=== PATIENT | female | born 1975 | race African-American/Black ===

== ENCOUNTER 2017-09-30 12:16 | Emergency (ER) | payer BC ==
[2017-09-30] MEDS: ONDANSETRON PF 4 MG/2 ML VIAL. IV (12:45)
[2017-09-30] MEDS: KETOROLAC 30 MG/ML INJ. IV (12:45)
[2017-09-30] MEDS: IV NORMAL SALINE 500ML BAG 500 ML IV (12:45)
[2017-09-30 12:54] LABS: URINE HCG POC HCG NEGATIVE (Negative)
[2017-09-30 14:20] LABS: AGAP ISTAT 14 mmol/L (6-14); BUN ISTAT 9 mg/dL (8-26); CHLORIDE ISTAT 102 mmol/L (98-110); CREATININE ISTAT 0.6 mg/dL (0.5-1.4); GLUCOSE ISTAT 92 mg/dL (70-99); HEMATOCRIT ISTAT 39 % (36-40); HEMOGLOBIN ISTAT 13.3 g/dL (12-15); ION CA ISTAT 1.13 mmol/L (1.13-1.32); POTASSIUM ISTAT 3.3 mmol/L (3.5-5.0); SODIUM ISTAT 138 mmol/L (135-145); TOT CO2 ISTAT 27 mmol/L (23-32)
[2017-09-30 20:13] LABS: AGAP ISTAT 9 mmol/L (6-14); BUN ISTAT 17 mg/dL (8-26); CHLORIDE ISTAT 101 mmol/L (98-110); GLUCOSE ISTAT 75 mg/dL (70-99); HEMATOCRIT ISTAT 41 % (36-40); HEMOGLOBIN ISTAT 13.9 g/dL (12-15); ION CA ISTAT 1.24 mmol/L (1.13-1.32); POTASSIUM ISTAT 3.3 mmol/L (3.5-5.0); SODIUM ISTAT 141 mmol/L (135-145); TOT CO2 ISTAT 35 mmol/L (23-32)
== END 2017-09-30 14:44 | disposition home or self-care (01) ==
LOC: ER 12:16
DX: R51 Headache (principal); I10 Essential (primary) hypertension
CPT/HCPCS: 36415; 70450; 80047; 81025; 85014; 85018; 96361; 96374; 96375; 99284-25; J1885; J2405; J7040

== ENCOUNTER → 2017-12-21 | Outpatient (CLI) | payer BC | END | disposition home or self-care (01) | LOC: MAMMO 09:54 | DX: N63.11 Unspecified lump in the right breast, upper outer quadrant (principal) | CPT/HCPCS: 76641 ==

== ENCOUNTER 2019-08-13 19:26 | Emergency (ER) | payer BC ==
[~2019-08-13] VITALS: Ht 167.6 cm; Wt 63.6 kg
--- NOTE | 2019-08-13 19:49 | PHYS DOC ---
Past Medical History Past Medical History: Hypertension Past Surgical History: No Surgical History Smoking Status: Never Smoker Alcohol Use: None Drug Use: None Adult General Chief Complaint Chief Complaint: BACK PAIN - NO INJURY [facility] HPI Patient is a 43 year old female who presents with upper back pain for the last 2 days. Patient states no injury, she just noticed the discomfort started to fee l a bit worse each day. States it seems to go across her upper back. Denies any shortness of breath. Denies any discomfort on deep inspiration. Denies nausea, vomiting. States she does have history of hypertension. Review of Systems Review of Systems Constitutional: Denies fever or chills [] Eyes: Denies change in visual acuity, redness, or eye pain [] HENT: Denies nasal congestion or sore throat [] Respiratory: Denies cough or shortness of breath [] Cardiovascular: No additional information not addressed in HPI [] GI: Denies abdominal pain, nausea, vomiting, bloody stools or diarrhea [] : Denies dysuria or hematuria [] Musculoskeletal: Reports upper back pain[] Integument: Denies rash or skin lesions [] Neurologic: Denies headache, focal weakness or sensory changes [] Endocrine: Denies polyuria or polydipsia [] All other systems were reviewed and found to be within normal limits, except as documented in this note. Allergies Allergies Allergies Coded Allergies Type Severity Reaction Last Updated Verified No Known Drug Allergies 09/30/17 No Physical Exam Physical Exam Constitutional: Well developed, well nourished, no acute distress, non-toxic appearance. [] Eyes: PERRLA, EOMI, conjunctiva normal, no discharge. [] Neck: Normal range of motion, no tenderness, supple, no stridor. [] Cardiovascular:Heart rate regular rhythm, no murmur [] Lungs & Thorax: Bilateral breath sounds clear to auscultation [] Abdomen: Bowel sounds normal, soft, no tenderness, no masses, no pulsatile mas ses. [] Skin: Warm, dry, no erythema, no rash. [] Back: No tenderness, no CVA tenderness. No spinous process tenderness. No tenderness noted to palpation to ribs. Patient reports he continues to have discomfort to her upper back, denies any increase in discomfort on palpation of back muscle or bones[] Extremities: No tenderness, no cyanosis, no clubbing, ROM intact, no edema. [] Neurologic: Alert and oriented X 3, normal motor function, normal sensory function, no focal deficits noted. [] Psychologic: Affect normal, judgement normal, mood normal. [] Current Patient Data Vital Signs Vital Signs Date Time Temp Pulse Resp B/P (MAP) Pulse Ox O2 Delivery O2 Flow Rate FiO2 08/13/19 19:50 97.8 77 18 138/82 (100) 100 Room Air 97.8 Lab Values Laboratory Tests Test 08/13/19 20:15 White Blood Count 4.2 x10^3/uL (4.0-11.0) Red Blood Count 4.05 x10^6/uL (3.50-5.40) Hemoglobin 12.9 g/dL (12.0-15.5) Hematocrit 38.0 % (36.0-47.0) Mean Corpuscular Volume 94 fL (79-100) Mean Corpuscular Hemoglobin 32 pg (25-35) Mean Corpuscular Hemoglobin Concent 34 g/dL (31-37) Red Cell Distribution Width 12.4 % (11.5-14.5) Platelet Count 164 x10^3/uL (140-400) Neutrophils (%) (Auto) 41 % (31-73) Lymphocytes (%) (Auto) 49 % (24-48) H Monocytes (%) (Auto) 10 % (0-9) H Eosinophils (%) (Auto) 0 % (0-3) Basophils (%) (Auto) 1 % (0-3) Neutrophils # (Auto) 1.7 x10^3/uL (1.8-7.7) L Lymphocytes # (Auto) 2.0 x10^3/uL (1.0-4.8) Monocytes # (Auto) 0.4 x10^3/uL (0.0-1.1) Eosinophils # (Auto) 0.0 x10^3/uL (0.0-0.7) Basophils # (Auto) 0.0 x10^3/uL (0.0-0.2) Sodium Level 141 mmol/L (136-145) Potassium Level 3.8 mmol/L (3.5-5.1) Chloride Level 104 mmol/L (98-107) Carbon Dioxide Level 27 mmol/L (21-32) Anion Gap 10 (6-14) Blood Urea Nitrogen 8 mg/dL (7-20) Creatinine 0.7 mg/dL (0.6-1.0) Estimated GFR (Cockcroft-Gault) 109.5 BUN/Creatinine Ratio 11 (6-20) Glucose Level 95 mg/dL (70-99) Calcium Level 8.5 mg/dL (8.5-10.1) Total Bilirubin 0.4 mg/dL (0.2-1.0) Aspartate Amino Transferase (AST) 18 U/L (15-37) Alanine Aminotransferase (ALT) 26 U/L (14-59) Alkaline Phosphatase 67 U/L (46-116) Troponin I Quantitative < 0.017 ng/mL (0.000-0.055) Total Protein 7.1 g/dL (6.4-8.2) Albumin 4.0 g/dL (3.4-5.0) Albumin/Globulin Ratio 1.3 (1.0-1.7) Laboratory Tests 08/13/19 20:15 Laboratory Tests 08/13/19 20:15 EKG EKG [] Radiology/Procedures Radiology/Procedures []Comparisons: 08/13/2019 FINDINGS: The cardiomediastinal silhouette and pulmonary vessels are within normal limits. The lung and pleural spaces are clear. IMPRESSION: No acute cardiopulmonary process. Electronically signed by: Eleanor Bartlett MD (08/13/2019 8:27 PM) [id number] Course & Med Decision Making Course & Med Decision Making Pertinent Labs and Imaging studies reviewed. (See chart for details) []Discussed reviewed results with patient, without acute findings. Recommend Tylenol and ibuprofen, offered short course of muscle relaxants which patient declines. Patient in agreement with this plan. Without Further questions or concerns Dragon Disclaimer Dragon Disclaimer This electronic medical record was generated, in whole or in part, using a voice recognition dictation system. Departure Departure Impression: Primary Impression: Back pain Disposition: 01 HOME, SELF-CARE Condition: STABLE Referrals: UNKNOWN PCP NAME (PCP) Patient Instructions: Back Pain, Adult, [id number] Additional Instructions: As we discussed, he can continue to take Tylenol or ibuprofen for discomfort. He may take Tylenol 500 mg to 1000 mg every 6 hours. Try to get some rest, this may help for your discomfort as well. If you continue to have the discomfort, follow-up with your primary care provider in the next week. Problem Qualifiers Primary Impression: Back pain Back pain location: thoracic back pain Chronicity: acute Back pain laterality: midline Qualified Codes: M54.6 - Pain in thoracic spine SLOANE PERDOMO APRN Aug 13, 2019 19:49
[2019-08-13 19:50] VITALS: BP 138/82
[2019-08-13 20:20] LABS: BASO % 1 % (0-3); EOS % 0 % (0-3); HEMOGLOBIN 12.9 g/dL (12.0-15.5); LYMPH % 49 % (24-48); MEAN CORPUSCULAR HEMOGLOBIN 32 pg (25-35); MEAN CORPUSCULAR HGB CONC 34 g/dL (31-37); MEAN CORPUSCULAR VOLUME 94 fL (79-100); MONO # 0.4 x10^3/uL (0.0-1.1); MONO % 10 % (0-9); NEUT # 1.7 x10^3/uL (1.8-7.7); NEUT % 41 % (31-73); PLATELET COUNT 164 x10^3/uL (140-400); RED BLOOD COUNT 4.05 x10^6/uL (3.50-5.40); RED CELL DISTRIBUTION WIDTH 12.4 % (11.5-14.5); WHITE BLOOD COUNT 4.2 x10^3/uL (4.0-11.0)
--- NOTE | 2019-08-13 20:30 | RAD ---
Exam: Chest 2 views INDICATION: Chest/back pain without injury TECHNIQUE: Frontal and lateral views the chest Comparisons: 08/13/2019 FINDINGS: The cardiomediastinal silhouette and pulmonary vessels are within normal limits. The lung and pleural spaces are clear. IMPRESSION: No acute cardiopulmonary process. Electronically signed by: Eleanor Bartlett MD (08/13/2019 8:27 PM) [id number]
[2019-08-13 20:31] LABS: CALCIUM 8.5 mg/dL (8.5-10.1); CREATININE 0.7 mg/dL (0.6-1.0); GFR 109.5; POTASSIUM 3.8 mmol/L (3.5-5.1)
[2019-08-13 20:37] LABS: ALBUMIN/GLOBULIN RATIO 1.3 (1.0-1.7); TOTAL BILIRUBIN 0.4 mg/dL (0.2-1.0); TOTAL PROTEIN 7.1 g/dL (6.4-8.2)
--- NOTE | 2019-08-14 02:59 | EKG ---
[facility] [address] [place] [address] Test Date: 2019-08-13 Test Time: 19:54:48 Pat Name: CARRIE CAT Department: Room: Gender: F Systems Development Consultant: : [id number] Requested By: SLOANE PERDOMO Order Number: [id number] Reading MD: Measurements Intervals [place] Rate: 73 P: 41 MA: 194 QRS: 58 QRSD: 94 T: 63 QT: 414 QTc: 460 Interpretive Statements SINUS RHYTHM S1,S2,S3 PATTERN INCOMPLETE RIGHT BUNDLE BRANCH BLOCK OTHERWISE NORMAL ECG RI6.01 No previous ECG available for comparison
== END 2019-08-13 21:04 | disposition home or self-care (01) ==
LOC: ER 19:26
DX: M54.6 Pain in thoracic spine (principal); I10 Essential (primary) hypertension
CPT/HCPCS: 36415; 71046; 80053; 84484; 85025; 93005; 99285